=== PATIENT | male | born 1960 | race Caucasian/White ===

== ENCOUNTER 2016-12-19 17:54 | Emergency (ER) | payer MEDICAID ==
[~2016-12-19] VITALS: Ht 165.1 cm; Wt 80.5 kg
[2016-12-19 18:04] VITALS: BP 159/105
== END 2016-12-19 20:12 ==
LOC: ED 20:06
DX: G89.29 Other chronic pain (principal); M54.5 Low back pain; M54.16 Radiculopathy, lumbar region; I10 Essential (primary) hypertension
CPT/HCPCS: 99283

== ENCOUNTER → 2016-12-29 | Outpatient (CLI) | payer MEDICAID ==
[~2016-12-29] MED LIST: AMLO1CAP10 PO; ATEN50TA41 PO; BACL20TA PO; DICY10CA3 PO; DOXY100T PO; GABA300C10 PO; LEVE500T8 PO
[2016-12-29 11:38] LABS: HEMATOCRIT 47.9 % (39.2-51.8); HEMOGLOBIN 16.2 g/dL (13.7-18.0); WHITE BLOOD COUNT 9.8 x10^3/uL (3.4-10)
[2016-12-29 11:49] LABS: ASPARTATE AMINO TRANSFERASE 26 U/L (15-37); BLOOD UREA NITROGEN 25 mg/dL (7-18)
== END | disposition home or self-care (01) ==
LOC: STAR 10:28
PROVIDERS: ATTEND Orthopaedic Surgery Orthopaedic Surgery of the Spine
DX: Z01.818 Encounter for other preprocedural examination (principal); M47.816 Spondylosis without myelopathy or radiculopathy, lumbar region
CPT/HCPCS: 36415; 71020; 80053; 81003; 85025; 93005

== ENCOUNTER 2017-01-07 07:39 | Inpatient (IN) | payer MEDICAID ==
[~2017-01-07] VITALS: Ht 165.1 cm; Wt 87.9 kg
[2017-01-07] MEDS ORDERED: LACTATED RINGERS 1,000 ML IV SCH (08:29)
[2017-01-07] MEDS ORDERED: FENTANYL PF 100 MCG/2ML ONE ×4 (08:46→13:10)
[2017-01-07] MEDS ORDERED: MIDAZOLAM 1 MG/ML, 2ML ONE (08:46)
[2017-01-07 08:54] VITALS: BP 131/79
[2017-01-07] MEDS ORDERED: TRANEXAMIC ACID 100 MG/ML, 10ML ONE ×2 (09:16→10:19)
[2017-01-07] MEDS ORDERED: THROMBIN 5,000 UNIT VIAL TP ONE (09:16)
[2017-01-07] MEDS ORDERED: NEOSPORIN OINT, 15GM ONE (09:16)
[2017-01-07] MEDS ORDERED: LIDOCAINE/MPF 2%-EPI 1:200K, 20 ML ONE (09:17)
[2017-01-07] MEDS ORDERED: VANCOMYCIN 1,000 MG ONE (09:17)
[2017-01-07] MEDS ORDERED: ONDANSETRON 2MG/ML, 2ML ONE (10:00)
[2017-01-07] MEDS ORDERED: ROCURONIUM 10 MG/ML ONE (10:00)
[2017-01-07] MEDS ORDERED: PROPOFOL 10 MG/ML, 20ML ONE (10:00)
[2017-01-07] MEDS ORDERED: CEFAZOLIN 1,000 MG ONE (10:00)
[2017-01-07] MEDS ORDERED: DEXAMETHASONE 4 MG/ML, 5ML ONE (10:00)
[2017-01-07] MEDS ORDERED: BUPIVACAINE LIPOSOME/PF INFIL ONE ×2 (10:36→11:53)
[2017-01-07] MEDS ORDERED: PROMETHAZINE 25 MG/ML, 1ML IV PRN (11:00)
[2017-01-07] MEDS ORDERED: DIAZEPAM 5 MG/ML, 2ML IV ONE (11:00)
[2017-01-07] MEDS ORDERED: ACETAMINOPHEN 325 MG TABLET PO PRN (11:00)
[2017-01-07] MEDS ORDERED: hydrALAzine 20 MG/ML, 1ML IV PRN (11:00)
[2017-01-07] MEDS ORDERED: LABETALOL 5MG/ML, 20ML IV PRN (11:00)
[2017-01-07] MEDS ORDERED: ONDANSETRON 2MG/ML, 2ML IVPush PRN ×2 (11:00→13:30)
[2017-01-07] MEDS ORDERED: OXYcodone 5 MG/5 ML ORAL.SOL UDC PO PRN (11:00)
[2017-01-07] MEDS ORDERED: ACETAMINOPHEN 650 MG/20.3 ML UDC ONE (13:10)
[2017-01-07] MEDS ORDERED: OXYcodone 5 MG/5 ML ORAL.SOL UDC ONE (13:10)
[2017-01-07] MEDS: FENTANYL PF 100 MCG/2ML IV PRN ×2 (13:12→13:19)
[2017-01-07] MEDS ORDERED: HYDROmorphone 1 MG/ML, 1ML ONE (13:30)
[2017-01-07] MEDS ORDERED: OXYcodone/APAP 5/325MG TABLET PO PRN (13:30)
[2017-01-07] MEDS ORDERED: DIPHENHYDRAMINE 50 MG/ML, 1ML IVPush PRN (13:30)
[2017-01-07] MEDS ORDERED: DIAZEPAM 5 MG/ML, 2ML IV PRN (13:30)
[2017-01-07] MEDS: HYDROmorphone 1 MG/ML, 1ML IV PRN ×3 (13:38→21:18)
[2017-01-07 15:30] VITALS: BP 98/67
[2017-01-07] MEDS ORDERED: BENAZEPRIL 20 MG TABLET PO PRN (16:00)
[2017-01-07] MEDS ORDERED: AMLODIPINE 5 MG TABLET PO PRN (16:00)
[2017-01-07] MEDS: morphine SULFATE 10 MG/ML, 1ML IVPush PRN ×3 (16:22→19:40)
[2017-01-07] MEDS: DICYCLOMINE 10 MG CAPSULE PO SCH ×2 (16:31→21:13)
[2017-01-07] MEDS: D5%-0.45NACL+KCL 20MEQ 1,000 ML IV SCH ×2 (16:31→17:45)
[2017-01-07] MEDS: GABAPENTIN 300 MG CAPSULE PO SCH ×2 (16:32→21:14)
[2017-01-07] MEDS: CEFAZOLIN PMX 1GM/50ML 50 ML IV SCH (18:33)
[2017-01-07 18:57] VITALS: BP 95/63
[2017-01-07] MEDS ORDERED: TAMSULOSIN 0.4 MG CAP.ER.24H PO ONE (20:00)
[2017-01-07] MEDS ORDERED: ATENOLOL 50 MG TABLET PO SCH (21:00)
[2017-01-07] MEDS: ATENOLOL 50 MG TABLET PO SCH (21:00)
[2017-01-07] MEDS: DOCUSATE 100 MG CAPSULE PO SCH (21:13)
[2017-01-07] MEDS: DOXYCYCLINE 100MG TABLET PO SCH (21:14)
[2017-01-07] MEDS: LEVETIRACETAM 500 MG TABLET PO SCH (21:14)
[2017-01-07 23:10] VITALS: BP 90/56
[2017-01-07] MEDS: OXYcodone/APAP 5/325MG TABLET PO PRN (23:15)
[2017-01-08] MEDS: CEFAZOLIN PMX 1GM/50ML 50 ML IV SCH ×2 (02:21→11:47)
[2017-01-08 03:04] VITALS: BP 91/58
[2017-01-08] MEDS: OXYcodone/APAP 5/325MG TABLET PO PRN ×5 (03:19→21:33)
[2017-01-08] MEDS: D5%-0.45NACL+KCL 20MEQ 1,000 ML IV SCH ×2 (05:50→19:06)
[2017-01-08 07:19] VITALS: BP 99/66
[2017-01-08] MEDS: LEVETIRACETAM 500 MG TABLET PO SCH ×2 (07:54→21:33)
[2017-01-08] MEDS: TAMSULOSIN 0.4 MG CAP.ER.24H PO SCH (07:54)
[2017-01-08] MEDS: DOXYCYCLINE 100MG TABLET PO SCH ×2 (07:54→21:33)
[2017-01-08] MEDS: DICYCLOMINE 10 MG CAPSULE PO SCH ×3 (07:55→21:33)
[2017-01-08] MEDS: GABAPENTIN 300 MG CAPSULE PO SCH ×3 (07:55→21:34)
[2017-01-08] MEDS: DOCUSATE 100 MG CAPSULE PO SCH ×2 (07:55→21:33)
[2017-01-08] MEDS: ATENOLOL 50 MG TABLET PO SCH ×2 (07:56→21:00)
[2017-01-08 13:38] VITALS: BP 101/65
[2017-01-08] MEDS: DIAZEPAM 5 MG TABLET PO PRN (13:38)
[2017-01-08 19:08] VITALS: BP 100/63
[2017-01-09] MEDS: OXYcodone/APAP 5/325MG TABLET PO PRN ×6 (01:29→23:02)
[2017-01-09 01:38] VITALS: BP 97/68
[2017-01-09 02:54] VITALS: BP 106/72
[2017-01-09] MEDS: DIAZEPAM 5 MG TABLET PO PRN ×2 (02:56→21:55)
[2017-01-09 07:55] VITALS: BP 130/75
[2017-01-09] MEDS: TAMSULOSIN 0.4 MG CAP.ER.24H PO SCH (09:09)
[2017-01-09] MEDS: DOCUSATE 100 MG CAPSULE PO SCH ×2 (09:09→21:42)
[2017-01-09] MEDS: ATENOLOL 50 MG TABLET PO SCH ×2 (09:10→21:43)
[2017-01-09] MEDS: DICYCLOMINE 10 MG CAPSULE PO SCH ×3 (09:10→21:42)
[2017-01-09] MEDS: D5%-0.45NACL+KCL 20MEQ 1,000 ML IV SCH ×2 (09:10→21:43)
[2017-01-09] MEDS: GABAPENTIN 300 MG CAPSULE PO SCH ×3 (09:10→21:43)
[2017-01-09] MEDS: LEVETIRACETAM 500 MG TABLET PO SCH ×2 (09:10→21:42)
[2017-01-09] MEDS: DOXYCYCLINE 100MG TABLET PO SCH ×2 (09:11→16:42)
[2017-01-09 14:45] VITALS: BP 132/85
[2017-01-09 20:00] VITALS: BP 144/81
[2017-01-09] MEDS: morphine SULFATE 10 MG/ML, 1ML IVPush PRN ×2 (20:18→20:50)
[2017-01-10] MEDS: OXYcodone/APAP 5/325MG TABLET PO PRN ×6 (02:56→23:58)
[2017-01-10] MEDS: morphine SULFATE 10 MG/ML, 1ML IVPush PRN ×7 (03:00→23:53)
[2017-01-10 03:11] VITALS: BP 127/84
[2017-01-10] MEDS: DIAZEPAM 5 MG TABLET PO PRN ×3 (06:04→22:05)
[2017-01-10 08:36] VITALS: BP 114/70
[2017-01-10] MEDS: ATENOLOL 50 MG TABLET PO SCH ×2 (08:40→19:44)
[2017-01-10] MEDS: LEVETIRACETAM 500 MG TABLET PO SCH ×2 (08:40→19:44)
[2017-01-10] MEDS: GABAPENTIN 300 MG CAPSULE PO SCH ×3 (08:40→19:44)
[2017-01-10] MEDS: DOXYCYCLINE 100MG TABLET PO SCH ×2 (08:40→19:44)
[2017-01-10] MEDS: DICYCLOMINE 10 MG CAPSULE PO SCH ×3 (08:40→19:44)
[2017-01-10] MEDS: TAMSULOSIN 0.4 MG CAP.ER.24H PO SCH (08:41)
[2017-01-10] MEDS: DOCUSATE 100 MG CAPSULE PO SCH ×2 (08:41→19:44)
[2017-01-10] MEDS: D5%-0.45NACL+KCL 20MEQ 1,000 ML IV SCH (11:58)
[2017-01-10 13:45] VITALS: BP 113/74
[2017-01-10] MEDS ORDERED: MORPHINE SULFATE 4 MG/ML, 1ML ONE (13:50)
[2017-01-10 19:42] VITALS: BP 110/61
[2017-01-10] MEDS: HYDROmorphone 1 MG/ML, 1ML IV PRN (23:17)
[2017-01-11] MEDS: D5%-0.45NACL+KCL 20MEQ 1,000 ML IV SCH ×3 (01:10→23:20)
[2017-01-11 04:05] VITALS: BP 98/65
[2017-01-11] MEDS: OXYcodone/APAP 5/325MG TABLET PO PRN ×2 (06:31→11:10)
[2017-01-11] MEDS: morphine SULFATE 10 MG/ML, 1ML IVPush PRN (06:32)
[2017-01-11] MEDS: DIAZEPAM 5 MG TABLET PO PRN ×2 (06:36→14:18)
[2017-01-11 08:00] VITALS: BP 105/72
[2017-01-11] MEDS: HYDROmorphone 1 MG/ML, 1ML IV PRN ×4 (08:25→21:41)
[2017-01-11] MEDS: GABAPENTIN 300 MG CAPSULE PO SCH ×3 (08:27→22:59)
[2017-01-11] MEDS: LEVETIRACETAM 500 MG TABLET PO SCH ×2 (08:27→23:00)
[2017-01-11] MEDS: DOCUSATE 100 MG CAPSULE PO SCH ×2 (08:27→23:00)
[2017-01-11] MEDS: DOXYCYCLINE 100MG TABLET PO SCH ×2 (08:27→23:00)
[2017-01-11] MEDS: TAMSULOSIN 0.4 MG CAP.ER.24H PO SCH (08:28)
[2017-01-11] MEDS: ATENOLOL 50 MG TABLET PO SCH ×2 (08:28→22:59)
[2017-01-11] MEDS: DICYCLOMINE 10 MG CAPSULE PO SCH ×3 (08:28→23:00)
[2017-01-11 12:40] VITALS: BP 113/72
[2017-01-11] MEDS ORDERED: BUPIVACAINE/PF 0.5% ONE (18:36)
[2017-01-11] MEDS ORDERED: THROMBIN 5,000 UNIT VIAL TP ONE ×2 (18:36→20:04)
[2017-01-11] MEDS ORDERED: BACITRACIN 50,000 UNIT ONE (18:37)
[2017-01-11] MEDS ORDERED: EPINEPHRINE 1 MG/ML, 1ML ONE (18:37)
[2017-01-11] MEDS ORDERED: NEOSTIGMINE 1 MG/ML, 10ML ONE (19:46)
[2017-01-11] MEDS ORDERED: METOCLOPRAMIDE 5 MG/ML, 2ML ONE (19:46)
[2017-01-11] MEDS ORDERED: DEXAMETHASONE 4 MG/ML, 1ML ONE (19:46)
[2017-01-11] MEDS ORDERED: GLYCOPYRROLATE 0.2MG/1ML, 5ML ONE (19:46)
[2017-01-11] MEDS ORDERED: PROPOFOL 10 MG/ML, 20ML ONE (19:46)
[2017-01-11] MEDS ORDERED: ONDANSETRON 2MG/ML, 2ML ONE (19:46)
[2017-01-11] MEDS ORDERED: CEFAZOLIN 1,000 MG ONE (19:46)
[2017-01-11] MEDS ORDERED: FENTANYL PF 1000 MCG/20ML ONE (19:46)
[2017-01-11] MEDS ORDERED: SUCCINYLCHOLINE 20 MG/ML, 10ML ONE (19:46)
[2017-01-11] MEDS ORDERED: ROCURONIUM 10 MG/ML ONE (19:46)
[2017-01-11] MEDS ORDERED: KETAMINE 10 MG/ML, 20ML ONE (19:46)
[2017-01-11] MEDS ORDERED: TRIAMCINOLONE ACETONIDE 40 MG/ML, 1ML ONE (19:56)
[2017-01-11] MEDS ORDERED: BUPIVACAINE/PF 0.5% INJ ONE (20:04)
[2017-01-11] MEDS ORDERED: BACITRACIN 50,000 UNIT IRRIG ONE (20:05)
[2017-01-11] MEDS ORDERED: PROMETHAZINE 25 MG/ML, 1ML IV PRN (20:30)
[2017-01-11] MEDS ORDERED: MEPERIDINE/PF 25MG/0.5ML IVPush PRN (20:30)
[2017-01-11] MEDS ORDERED: OXYcodone 5 MG/5 ML ORAL.SOL UDC PO PRN (20:30)
[2017-01-11] MEDS ORDERED: ONDANSETRON 2MG/ML, 2ML IVPush PRN (20:30)
[2017-01-11] MEDS ORDERED: ACETAMINOPHEN 325 MG TABLET PO PRN (20:30)
[2017-01-11] MEDS ORDERED: FENTANYL PF 100 MCG/2ML IV PRN (20:30)
[2017-01-11] MEDS ORDERED: LABETALOL 5MG/ML, 20ML IV PRN (20:30)
[2017-01-11] MEDS ORDERED: DIAZEPAM 5 MG/ML, 2ML IVPush PRN (20:30)
[2017-01-11] MEDS ORDERED: MIDAZOLAM 1 MG/ML, 2ML IV PRN (20:30)
[2017-01-11] MEDS ORDERED: hydrALAzine 20 MG/ML, 1ML IV PRN (20:30)
[2017-01-11] MEDS ORDERED: OXYcodone 5 MG/5 ML ORAL.SOL UDC ONE (20:55)
[2017-01-11] MEDS ORDERED: ACETAMINOPHEN 650 MG/20.3 ML UDC ONE (20:55)
[2017-01-11] MEDS ORDERED: HYDROmorphone 1 MG/ML, 1ML ONE (20:55)
[2017-01-12] VITALS: BP 124/79
[2017-01-12] MEDS: DIAZEPAM 5 MG TABLET PO PRN ×3 (00:29→20:39)
[2017-01-12] MEDS: OXYcodone/APAP 5/325MG TABLET PO PRN ×6 (00:29→20:39)
[2017-01-12 04:03] VITALS: BP 104/70
[2017-01-12] MEDS: CEFAZOLIN PMX 2GM/50ML 50 ML IVPB SCH ×2 (04:30→12:20)
[2017-01-12 07:56] VITALS: BP 114/76
[2017-01-12] MEDS ORDERED: GADOBUTROL 10 MMOL/10 ML PFS ONE (09:43)
[2017-01-12] MEDS: ATENOLOL 50 MG TABLET PO SCH ×2 (10:11→22:19)
[2017-01-12] MEDS: TAMSULOSIN 0.4 MG CAP.ER.24H PO SCH (10:11)
[2017-01-12] MEDS: DOCUSATE 100 MG CAPSULE PO SCH ×2 (10:11→20:39)
[2017-01-12] MEDS: DOXYCYCLINE 100MG TABLET PO SCH ×2 (10:12→20:39)
[2017-01-12] MEDS: DICYCLOMINE 10 MG CAPSULE PO SCH ×3 (10:12→20:39)
[2017-01-12] MEDS: GABAPENTIN 300 MG CAPSULE PO SCH ×3 (10:12→20:39)
[2017-01-12] MEDS: LEVETIRACETAM 500 MG TABLET PO SCH ×2 (10:12→20:39)
[2017-01-12] MEDS: D5%-0.45NACL+KCL 20MEQ 1,000 ML IV SCH (12:20)
[2017-01-12 14:19] VITALS: BP 111/67
[2017-01-12 18:45] VITALS: BP 123/74
[2017-01-12] MEDS: morphine SULFATE 10 MG/ML, 1ML IVPush PRN (19:44)
[2017-01-13] MEDS: morphine SULFATE 10 MG/ML, 1ML IVPush PRN ×2 (00:01→06:40)
[2017-01-13] MEDS: D5%-0.45NACL+KCL 20MEQ 1,000 ML IV SCH (02:00)
[2017-01-13 03:56] VITALS: BP 123/77
[2017-01-13] MEDS: OXYcodone/APAP 5/325MG TABLET PO PRN ×3 (04:15→12:33)
[2017-01-13 07:05] VITALS: BP 149/83
[2017-01-13] MEDS: DIAZEPAM 5 MG TABLET PO PRN (08:34)
[2017-01-13] MEDS: LEVETIRACETAM 500 MG TABLET PO SCH (08:35)
[2017-01-13] MEDS: DOCUSATE 100 MG CAPSULE PO SCH (08:35)
[2017-01-13] MEDS: DICYCLOMINE 10 MG CAPSULE PO SCH ×2 (08:35→16:50)
[2017-01-13] MEDS: TAMSULOSIN 0.4 MG CAP.ER.24H PO SCH (08:35)
[2017-01-13] MEDS: ATENOLOL 50 MG TABLET PO SCH (08:36)
[2017-01-13] MEDS: GABAPENTIN 300 MG CAPSULE PO SCH ×2 (08:36→16:50)
[2017-01-13] MEDS: DOXYCYCLINE 100MG TABLET PO SCH (08:36)
[2017-01-13 13:41] VITALS: BP 128/82
[2017-01-13] MEDS ORDERED: BISACODYL 10 MG SUPP PR PRN (15:00)
[2017-01-13] MEDS ORDERED: PNEUMOCOCCAL 23 VACCINE IM-VACC ONE (20:00)
== END 2017-01-13 20:10 | disposition home health service (06) | DRG 460 ==
LOC: ORIP 07:39 → INTOOBSV 07:39 → OBSVTOIN 09:48 → 4NOR 15:21
PROVIDERS: ADMIT Orthopaedic Surgery Orthopaedic Surgery of the Spine; ATTEND Orthopaedic Surgery Orthopaedic Surgery of the Spine
PROC: 4A11X4G Monitoring of Peripheral Nervous Electrical Activity, Intraoperative, External Approach (ICD-10-PCS; 2017-01-07)
PROC: 0SG00AJ Fusion of Lumbar Vertebral Joint with Interbody Fusion Device, Posterior Approach, Anterior Column, Open Approach (ICD-10-PCS; principal; 2017-01-07 10:00)
PROC: 01NB0ZZ Release Lumbar Nerve, Open Approach (ICD-10-PCS; 2017-01-11)
DX: M43.16 Spondylolisthesis, lumbar region (principal); G40.909 Epilepsy, unspecified, not intractable, without status epilepticus; M19.90 Unspecified osteoarthritis, unspecified site; M48.06 Spinal stenosis, lumbar region; M54.16 Radiculopathy, lumbar region; M21.371 Foot drop, right foot; R32 Unspecified urinary incontinence
CPT/HCPCS: 36415; 72100; 72131; 72158; 86850; 86900; A9585; C1713; C1767; C9290; G0378; J0171; J0690; J1100; J1170; J2250; J2405; J2704; J2710; J3010; J3301; J3360; J3370; J3490; C1762; J0330; J2270; J2765; J3480; J7120

== ENCOUNTER → 2017-01-24 | Outpatient (CLI) | payer MEDICAID ==
[~2017-01-24] MED LIST changes: +GADOBUTROL 7.5 MMOL/7.5 ML PFS ONE
== END | disposition home or self-care (01) ==
LOC: RAD 16:13
PROVIDERS: ATTEND Orthopaedic Surgery Orthopaedic Surgery of the Spine
DX: M47.896 Other spondylosis, lumbar region (principal); M48.07 Spinal stenosis, lumbosacral region; M43.27 Fusion of spine, lumbosacral region; Z98.890 Other specified postprocedural states
CPT/HCPCS: 72158; A9585